=== PATIENT | female | born 1970 | race Caucasian/White ===

== ENCOUNTER 2016-09-24 21:04 | Emergency (ER) | payer OTHER ==
[~2016-09-24 21:04] MED LIST: FLEXERIL10 MG PO; MOTRIN800 MG PO
--- NOTE | 2016-09-24 21:22 | ED HEAD/FACIAL INJ COMPLAINT ---
History of Present Illness General Chief Complaint: Fall Stated Complaint: +HEAD STRIKE, - THINNERS, S/P SLIP AND FALL Source: patient, old records Exam Limitations: no limitations Vital Signs & Intake/Output Vital Signs & Intake/Output Vital Signs Date Time Temp Pulse Resp B/P Pulse O2 O2 Flow FiO2 Ox Delivery Rate 09/24 2133 Room Air 09/24 2111 97.7 78 140/86 Allergies Coded Allergies: oxycodone (Severe, RASH, HIVES, SWELLING 09/24/16) Reconcile Medications Amitriptyline HCl 25 MG TABLET 1 TAB PO QPM DEPRESSION (Reported) Amoxicillin/Clavulanate Potass (Amox-Clav 875-125 MG Tablet) 875 MG-125 MG TABLET 1 TAB PO BID ANTIBIOTIC (Reported) Cetirizine HCl (Zyrtec) 10 MG TABLET 1 TAB PO QPM ALLERGIES (Reported) Cyanocobalamin (Vitamin B-12) (Vitamin B-12) 2,000 MCG TABLET 1 TAB SL DAILY SUPPLEMENT (Reported) Diazepam 5 MG TABLET 1 TAB PO PRN MUSCLE SPASMS (Reported) Folic Acid 1 MG TABLET 1 TAB PO DAILY THALESSEMIA TRAIT (Reported) Ibuprofen 800 MG TABLET 1 TAB PO PRN PAIN (Reported) Metformin HCl (Metformin HCl ER) 500 MG TAB.ER.24H 2 TAB PO DAILY DM ( Reported) Multivit/Iron/FA/K/Herb No.244 ([employer] Mv Tablet) 18 MG IRON-400 MCG-80 MCG TABLET 1 TAB PO DAILY SUPPLEMENT (Reported) Tramadol HCl 50 MG TABLET 1 TAB PO BID PRN PAIN (Reported) Valsartan 160 MG TABLET 1 TAB PO DAILY BP (Reported) Venlafaxine HCl (Venlafaxine HCl ER) 75 MG CAP.ER.24H 1 CAP PO DAILY DEPRESSION (Reported) Triage Note: PER PT FELL OFF RAMP AT HOME FELL BACKWEARDS AND HIT HEAD NO LOC BUT NOW C/O SEVERE GREGORY. 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 ALERT NO NEURO DEFICITS. Triage Nurses Notes Reviewed? yes : No Patient currently breastfeeds: No HPI: Patient states that she slipped on a patch of ice and fell backwards and hit the back of her head on the ground. This happened approximately 20 minutes prior to arrival. There was no loss of consciousness but she immediately developed a headache and neck pain. The headache is a pressure feeling on the top of her head and in the frontal area. There is no blurry vision but there is nausea. The pain is 8 out of 10 and is constant. There is no radiation outside of the areas stated above. There are no aggravating or mitigating factors. The pain in her neck is diffuse in the lateral and middle. The pain is aching in nature. Pain increases with movement of her head. There is no radiation into her arms, legs or upper back. There is no weakness or numbness. There is no tingling. She rates the pain in her neck as 6 out of 10. Past History Travel History Traveled to [place] past 21 day No Medical History Any Pertinent Medical History? see below for history Neurological: NONE EENT: NONE Cardiovascular: hypertension Respiratory: NONE Gastrointestinal: NONE Hepatic: NONE Renal: URINARY FREQUENCY Musculoskeletal: NONE Psychiatric: depression Endocrine: diabetes Surgical History Surgical History: , LEFT ELBOW Psychosocial History What is your primary language Bhutanese Tobacco Use: Never used ETOH Use: occasional use Illicit Drug Use: denies illicit drug use Family History Hx Contributory? No Review of Systems Review of Systems Constitutional: Reports: no symptoms. EENTM: Reports: no symptoms. Respiratory: Reports: no symptoms. Cardiovascular: Reports: no symptoms. GI: Reports: see HPI, nausea. Genitourinary: Reports: no symptoms. Musculoskeletal: Reports: see HPI, neck pain. Skin: Reports: no symptoms. Neurological/Psychological: Reports: see HPI, headache. Hematologic/Endocrine: Reports: no symptoms. Immunologic/Allergic: Reports: no symptoms. All Other Systems: Reviewed and Negative Physical Exam Physical Exam General Appearance: well developed/nourished, alert, awake, anxious, moderate distress Head: atraumatic, normal appearance Eyes: Bilateral: PERRL, EOMI. Ears, Nose, Throat: normal pharynx, normal ENT inspection, hearing grossly normal Neck: normal inspection, supple, tender lateral, tender midline Respiratory: normal breath sounds, chest non-tender, no respiratory distress, lungs clear Cardiovascular: regular rate/rhythm, normal peripheral pulses Gastrointestinal: normal bowel sounds, soft, non-tender Back: normal inspection, no vertebral tenderness Extremities: normal inspection, normal range of motion, no edema Psychiatric: awake, alert, oriented x 3 Cranial Nerves: normal hearing, normal speech, PERRL Coordination/Gait: normal gait Motor/Sensory: no motor/sensory deficits Skin: intact, normal color, warm/dry Lymphatic: no anterior cervical angel Progress Differential Diagnosis: c-spine injury, ICH Plan of Care: Orders Procedure Date/time Status XRY-LUMBOSACRAL SPINE 4 VIEWS 09/24 2133 Active Diagnostic Imaging: Viewed by Me: CT Scan. Discussed w/RAD: CT Scan. Radiology Impression: PATIENT: LAURO LEMONS PRESENT AGE: 46 PATIENT ACCOUNT NO: [id number] : 71 LOCATION: [facility] ORDERING PHYSICIAN: MIRI MCMAHON MD SERVICE DATE: 09/24/16 EXAM TYPE: CAT - CT CERV SPINE WO IV CONTRAST; CT HEAD WO IV CONTRAST EXAMINATION: CT HEAD WITHOUT CONTRAST CT CERVICAL SPINE WITHOUT CONTRAST CLINICAL INFORMATION: Fall and head injury. Assess for fracture or intracranial hemorrhage. COMPARISON: None. TECHNIQUE: Multidetector CT imaging of the head and cervical spine was performed without the use of intravenous contrast. Coronal and sagittal reformatted images were generated at the technologist workstation. DLP: 853.68 mGy-cm. FINDINGS: CT head: There is no evidence of acute intracranial hemorrhage or territorial infarction. No abnormal mass-effect or midline shift is seen. Newton to white matter differentiation is well preserved. No extra-axial fluid collections are identified. The ventricles are normal in size. There is no abnormal attenuation within the brain parenchyma. The osseous structures and soft tissues are normal; there are no fractures or large scalp contusions.. The mastoid air cells and visualized portions of the paranasal sinuses are well- aerated. CT cervical spine: There is reversal of the normal cervical lordosis. There is narrowing of intervertebral disc height at the levels of C5-C6 and C6- C7. There are moderate osteophytes anteriorly at C6-C7. Vertebral body heights are maintained and there are no compression fractures. Facet alignment appears normal. The lateral masses of C1 and C2 are normally aligned and the dens appears intact. There is mild foraminal narrowing from uncovertebral osteophytes at C6-C7. Bone mineralization is normal. The prevertebral and paraspinal soft tissues are unremarkable. The visualized lung apices are clear and there is no pneumothorax. IMPRESSION: 1. There are no acute intracranial bleeds or territorial infarcts. 2. There are no fractures or large scalp contusions. 3. There are no acute findings in the cervical spine; there are multilevel degenerative changes. DICTATED BY: FRANK RODRIGUEZ MD DATE/TIME DICTATED:09/24/162156 INJECTION MOLDING OPERATOR:TOMI DATE/TIME TRANSCRIBED:09/24/162156 CONFIDENTIAL, DO NOT COPY WITHOUT APPROPRIATE AUTHORIZATION. <Electronically signed in Other Vendor System> SIGNED BY: FRANK RODRIGUEZ MD 09/24/162210, PATIENT: LAURO LEMONS PRESENT AGE: 46 PATIENT ACCOUNT NO: [id number] : 71 LOCATION: [facility] ORDERING PHYSICIAN: MIRI MCMAHON MD SERVICE DATE: 09/24/16 EXAM TYPE: RAD - XRY-LUMBOSACRAL SPINE 4 VIEWS EXAMINATION: XR LUMBOSACRAL SPINE CLINICAL INFORMATION: Pain after a fall COMPARISON: Lumbar spine 01/24/2009 TECHNIQUE: 3 views. FINDINGS: Vertebrae have normal height and alignment. No fracture. No bone destruction. There is small degenerative spurs of the endplates of the vertebrae. Lumbar disc height is maintained. There is however narrowing of the disc heights at the lower thoracic spine. There is mild degenerative facet joint arthrosis at L4-L5 and more significant at L5-S1. No spondylolysis or spondylolisthesis. Sacroiliac joints are normal. Compared to prior exam of 01/24/2009 there is increasing size of the endplate spurs of the vertebrae. There is increased loss of height of disc spaces at T12-L1 and T11-T12. IMPRESSION: 1. No acute abnormality. No fracture. 2. Degenerative disc disease of the lumbar spine and lower thoracic spine. Is been mild progression of the degenerative changes since prior exam of 01/24/2009. DICTATED BY: MARYCRUZ FERNANDEZ MD DATE/TIME DICTATED:09/24/162234 INJECTION MOLDING OPERATOR:TOMI DATE/TIME TRANSCRIBED:09/24/162234 CONFIDENTIAL, DO NOT COPY WITHOUT APPROPRIATE AUTHORIZATION. <Electronically signed in Other Vendor System> SIGNED BY: MARYCRUZ FERNANDEZ MD 09/24/162241 Comments: While in the emergency department waiting for her CAT scan she began to develop low back pain. The pain is on the left side of her spine. There is no radiation. The pain is aching in nature. There is no radiation. She rates the pain as 4 out of 10. There are no exacerbating or mitigating factors. Departure Departure Disposition: HOME OR SELF CARE Condition: Stable Clinical Impression Primary Impression: Head injury Secondary Impressions: Cervical strain, Low back pain Referrals: CINDY OGLESBY MD (PCP/Family) Additional Instructions: USE MOIST HEAT RETURN IF SYMPTOMS WORSEN OR FOR ANY CONCERNS FOLLOW UP WITH YOUR DOCTOR THIS WEEK Departure Forms: Customer Survey General Discharge Information Prescriptions: Current Visit Scripts Cyclobenzaprine HCl 1 TAB PO Q8P #20 TAB Ibuprofen 1 TAB PO TID PRN PAIN #20 TAB with food
[2016-09-24] MEDS ORDERED: METFORMIN HCL500 M4 PO (22:09)
[2016-09-24] MEDS ORDERED: VALSARTAN160 M1 PO (22:09)
[2016-09-24] MEDS ORDERED: AMITRIPTYLINE H25 M2 PO (22:10)
[2016-09-24] MEDS ORDERED: ZYRTEC10 M3 PO (22:10)
[2016-09-24] MEDS ORDERED: FOLIC ACID1 M1 PO (22:10)
[2016-09-24] MEDS ORDERED: VENLAFAXINE HCL75 M1 PO (22:10)
[2016-09-24] MEDS ORDERED: TRAMADOL HCL50 M1 PO (22:11)
[2016-09-24] MEDS ORDERED: AMOX-CLAV 875-1 EACH PO (22:11)
--- NOTE | 2016-09-24 22:11 | CT SCAN REPORT ---
EXAMINATION: CT HEAD WITHOUT CONTRAST CT CERVICAL SPINE WITHOUT CONTRAST CLINICAL INFORMATION: Fall and head injury. Assess for fracture or intracranial hemorrhage. COMPARISON: None. TECHNIQUE: Multidetector CT imaging of the head and cervical spine was performed without the use of intravenous contrast. Coronal and sagittal reformatted images were generated at the technologist workstation. DLP: 853.68 mGy-cm. FINDINGS: CT head: There is no evidence of acute intracranial hemorrhage or territorial infarction. No abnormal mass-effect or midline shift is seen. Newton to white matter differentiation is well preserved. No extra-axial fluid collections are identified. The ventricles are normal in size. There is no abnormal attenuation within the brain parenchyma. The osseous structures and soft tissues are normal; there are no fractures or large scalp contusions.. The mastoid air cells and visualized portions of the paranasal sinuses are well-aerated. CT cervical spine: There is reversal of the normal cervical lordosis. There is narrowing of intervertebral disc height at the levels of C5-C6 and C6-C7. There are moderate osteophytes anteriorly at C6-C7. Vertebral body heights are maintained and there are no compression fractures. Facet alignment appears normal. The lateral masses of C1 and C2 are normally aligned and the dens appears intact. There is mild foraminal narrowing from uncovertebral osteophytes at C6-C7. Bone mineralization is normal. The prevertebral and paraspinal soft tissues are unremarkable. The visualized lung apices are clear and there is no pneumothorax. IMPRESSION: 1. There are no acute intracranial bleeds or territorial infarcts. 2. There are no fractures or large scalp contusions. 3. There are no acute findings in the cervical spine; there are multilevel degenerative changes.
[2016-09-24] MEDS ORDERED: ALIVE WOMEN'S1 EAC1 PO (22:12)
[2016-09-24] MEDS ORDERED: DIAZEPAM5 M1 PO (22:12)
[2016-09-24] MEDS ORDERED: IBUPROFEN800 M1 PO (22:13)
[2016-09-24] MEDS ORDERED: VITAMIN B-122000 MC1 SL (22:13)
--- NOTE | 2016-09-24 22:42 | RADIOLOGY REPORT ---
EXAMINATION: XR LUMBOSACRAL SPINE CLINICAL INFORMATION: Pain after a fall COMPARISON: Lumbar spine 01/24/2009 TECHNIQUE: 3 views. FINDINGS: Vertebrae have normal height and alignment. No fracture. No bone destruction. There is small degenerative spurs of the endplates of the vertebrae. Lumbar disc height is maintained. There is however narrowing of the disc heights at the lower thoracic spine. There is mild degenerative facet joint arthrosis at L4-L5 and more significant at L5-S1. No spondylolysis or spondylolisthesis. Sacroiliac joints are normal. Compared to prior exam of 01/24/2009 there is increasing size of the endplate spurs of the vertebrae. There is increased loss of height of disc spaces at T12-L1 and T11-T12. IMPRESSION: 1. No acute abnormality. No fracture. 2. Degenerative disc disease of the lumbar spine and lower thoracic spine. Is been mild progression of the degenerative changes since prior exam of 01/24/2009.
[2016-09-24 23:05] VITALS: BP 146/67
[2016-09-24] MEDS ORDERED: CYCLOBENZAPRINE10 M1 PO (23:05)
[2016-09-24] MEDS ORDERED: IBUPROFEN600 M1 PO (23:05)
== END 2016-09-24 23:13 ==
LOC: ERH 21:04
DX: S09.90XA Unspecified injury of head, initial encounter (principal); S16.1XXA Strain of muscle, fascia and tendon at neck level, initial encounter; M54.5 Low back pain; W00.0XXA Fall on same level due to ice and snow, initial encounter
CPT/HCPCS: 72110; J3101